=== PATIENT | female | born 1945 ===

== ENCOUNTER 2019-09-27 04:45 | Day surgery (SDC) | payer OTHER ==
[~2019-09-27 04:45] MED LIST: CRESTOR20 MG PO; GABAPEN PO; LEVOTHYROXINE25 MCG PO; VIT D PO
[2019-09-27] MEDS ORDERED: ULTRACET PO (08:57)
[2019-09-27] MEDS ORDERED: MACROBID 100 M100 MG PO (08:57)
== END 2019-09-27 13:35 | disposition home or self-care (01) ==
LOC: CIR.AMB 04:45 → ADM 10:00 → CIR.AMB 10:00
DX: N81.11 Cystocele, midline (principal); N81.6 Rectocele